=== PATIENT | male | born 1990 | race Caucasian/White ===

== ENCOUNTER 2017-07-04 10:31 | Emergency (ER) | payer BC ==
[~2017-07-04] VITALS: Ht 172.7 cm; Wt 72.6 kg
[~2017-07-04 10:31] MED LIST: AMOXICILLIN 50500 M1 PO; IBUPROFEN 600600 M1 PO; ZOFRAN ODT8 MG PO
[2017-07-04] MEDS ORDERED: DOXYCYCLINE 10100 M1 PO (10:38)
[2017-07-04 10:58] LABS: ABSOLUTE NEUTROPHILS 4.7 thou/uL (1.4-8.2); BASOPHILS 0.9 % (0.0-2.0); EOSINOPHILS 2.9 % (0.0-3.0); HEMATOCRIT 48.6 % (42.0-52.0); LYMPHOCYTES 22.8 % (24.0-44.0); MCH 30.4 pg (26.0-34.0); MCV 86.8 fL (80.0-100.0); MONOCYTES 9.2 % (1.0-8.0); PLATELET COUNT 323 thou/uL (150-400); POLYS 64.2 % (36.0-66.0); RDW 12.9 % (10.5-14.5); WBC 7.3 thou/uL (4.0-11.0)
[2017-07-04 10:59] LABS: MANUAL DIFF NO
[2017-07-04 11:08] LABS: CALCIUM 10.1 mg/dL (8.5-10.1); CREATININE 1.3 mg/dL (0.7-1.3); POTASSIUM 3.5 mmol/L (3.5-5.1)
[2017-07-04 11:54] VITALS: BP 109/67
== END 2017-07-04 12:07 | disposition home or self-care (01) ==
LOC: ER 10:31
PROVIDERS: Physician Assistant
DX: J30.9 Allergic rhinitis, unspecified (principal); F41.9 Anxiety disorder, unspecified; J34.89 Other specified disorders of nose and nasal sinuses; F32.9 Major depressive disorder, single episode, unspecified; Z91.5 Personal history of self-harm; Z88.8 Allergy status to other drugs, medicaments and biological substances

== ENCOUNTER 2017-11-20 08:58 | Emergency (ER) | payer OTHER ==
[~2017-11-20] VITALS: Ht 177.8 cm; Wt 77.1 kg
--- NOTE | ~2017-11-20 | EKG ---
[address] [address] ELECTROCARDIOGRAM REPORT Name: DEBI DE LA CRUZ Room #: DEP Ashli#: [id number] Admission: 11/20/17 Attend Phys: Discharge: 11/20/17 Date of : 88 Report #: [id number] THIS REPORT FOR: //name// [facility] ED Test Date: 2017-11-20 Test Time: 09:02:44 Pat Name: DEBI DE LA CRUZ Department: Room: Gender: Business Change Manager: : 1990 Requested By: Zoe Alcaraz Order Number: [id number] MD: Edmond Salgado Measurements Intervals [place] Rate: 71 P: 36 SD: 167 QRS: 8 QRSD: 84 T: 44 QT: 392 QTc: 426 Interpretive Statements Sinus rhythm No previous ECG available for comparison Electronically Signed On 11-20-2017 15:42:33 GLOBAL LOGISTICS MANAGER by Edmond Salgado [email or web address] <ELECTRONICALLY SIGNED> By: Edmond Salgado MD 11/20/17 1542 0902 1 Edmond Salgado MD /KAREN
[~2017-11-20 08:58] MED LIST changes: +DOXYCYCLINE 10100 M1 PO; +ZOLOFT25 MG PO
[2017-11-20 09:25] LABS: HEMATOCRIT 44.9 % (42.0-52.0); HEMOGLOBIN 15.4 gm/dL (14.0-18.0); MCH 29.4 pg (26.0-34.0); MCHC 34.2 g/dL (28.0-37.0); MCV 85.8 fL (80.0-100.0); RBC 5.24 mil/uL (4.50-6.00); RDW 12.2 % (10.5-14.5); WBC 6.7 thou/uL (4.0-11.0)
[2017-11-20 09:41] LABS: ANION GAP 11 mmol/L (7-16); BUN 12 mg/dL (7-18); CALCIUM 9.5 mg/dL (8.5-10.1); CHLORIDE 104 mmol/L (98-107); CO2 27 mmol/L (21-32); GLUCOSE 97 mg/dL (74-106); POTASSIUM 3.6 mmol/L (3.5-5.1); SODIUM 142 mmol/L (136-145); TROPONIN-I < 0.04 ng/mL (<0.06)
[2017-11-20] MEDS ORDERED: PEPCID20 MG PO (09:58)
[2017-11-20] MEDS ORDERED: CARAFATE 1 GM TA1 G1 PO (09:58)
[2017-11-20] MEDS ORDERED: ATIVAN0.5 MG PO (09:58)
== END 2017-11-20 10:40 | disposition home or self-care (01) ==
LOC: ER 08:58
PROVIDERS: Physician Assistant
DX: R07.89 Other chest pain (principal); K29.70 Gastritis, unspecified, without bleeding; F41.9 Anxiety disorder, unspecified; F32.9 Major depressive disorder, single episode, unspecified; Z88.1 Allergy status to other antibiotic agents; Z88.8 Allergy status to other drugs, medicaments and biological substances

== ENCOUNTER → 2018-01-09 | Outpatient (CLI) | payer OTHER ==
[~2018-01-09] MED LIST changes: +ATIVAN0.5 MG PO; +CARAFATE 1 GM TA1 G1 PO; +PEPCID20 MG PO
== END ==
LOC: RAD 10:27 → CAT 12:23 → RAD 12:23
DX: R10.11 Right upper quadrant pain (principal); R19.7 Diarrhea, unspecified

== ENCOUNTER 2018-07-28 20:58 | Emergency (ER) | payer OTHER ==
[~2018-07-28] VITALS: Ht 175.3 cm; Wt 72.6 kg
[2018-07-28 21:22] LABS: HEMATOCRIT 45.4 % (42.0-52.0); HEMOGLOBIN 15.5 gm/dL (14.0-18.0); MCH 29.5 pg (26.0-34.0); MCHC 34.1 g/dL (28.0-37.0); MCV 86.6 fL (80.0-100.0); RBC 5.25 mil/uL (4.50-6.00); RDW 12.8 % (10.5-14.5); WBC 8.8 thou/uL (4.0-11.0)
[2018-07-28 21:31] LABS: CALCIUM 9.1 mg/dL (8.5-10.1); CREATININE 0.9 mg/dL (0.7-1.3); POTASSIUM 3.1 mmol/L (3.5-5.1)
[2018-07-28 23:20] VITALS: BP 109/68
== END 2018-07-28 23:41 | disposition home or self-care (01) ==
LOC: ER 20:58
PROVIDERS: Emergency Medicine
DX: S06.0X0A Concussion without loss of consciousness, initial encounter (principal); S00.83XA Contusion of other part of head, initial encounter; Z88.8 Allergy status to other drugs, medicaments and biological substances; K58.9 Irritable bowel syndrome, unspecified; F32.9 Major depressive disorder, single episode, unspecified; F41.9 Anxiety disorder, unspecified; X58.XXXA Exposure to other specified factors, initial encounter; Y92.009 Unspecified place in unspecified non-institutional (private) residence as the place of occurrence of the external cause; Y93.89 Activity, other specified; Y99.8 Other external cause status

== ENCOUNTER 2018-12-03 17:22 | Emergency (ER) | payer BC ==
[~2018-12-03] VITALS: Ht 177.8 cm; Wt 74.8 kg
[2018-12-03 18:20] LABS: ABSOLUTE NEUTROPHILS 8.9 thou/uL (1.4-8.2); BASOPHILS 0.9 % (0.0-2.0); EOSINOPHILS 0.5 % (0.0-3.0); HEMATOCRIT 46.5 % (42.0-52.0); HEMOGLOBIN 15.8 gm/dL (14.0-18.0); MCH 29.6 pg (26.0-34.0); MCV 87.1 fL (80.0-100.0); MONOCYTES 9.2 % (1.0-8.0); PLATELET COUNT 339 thou/uL (150-400); POLYS 75.4 % (36.0-66.0); RBC 5.34 mil/uL (4.50-6.00); RDW 12.6 % (10.5-14.5); WBC 11.8 thou/uL (4.0-11.0)
[2018-12-03 18:29] LABS: CALCIUM 9.3 mg/dL (8.5-10.1); CREATININE 0.9 mg/dL (0.7-1.3); POTASSIUM 3.3 mmol/L (3.5-5.1)
[2018-12-03 18:35] LABS: ALBUMIN 4.6 g/dL (3.4-5.0); TOTAL PROTEIN 8.2 g/dL (6.4-8.2)
[2018-12-03 19:08] VITALS: BP 130/73
--- NOTE | 2018-12-04 09:06 | EKG ---
[place] [address] [facility] [facility] [place] [address] ELECTROCARDIOGRAM REPORT Name: DEBI DE LA CRUZ [id number] ������������������ Admission: 12/03/18 ������������������ Attend Phys: Discharge: 12/03/18 ������������������ Date of : 88 Report #: [id number] ����������������������������������������������������������������� [id number] THIS REPORT FOR: //name// [facility] ED Test Date: 2018-12-03 Test Time: 18:17:18 Pat Name: DEBI DE LA CRUZ Department: Room: Gender: Machine Tool Operator: ASHLEIGHZak : 1990 Requested By: Gavin Diego Order Number: [id number] MD: Rogelio Wilcox Measurements Intervals [place] Rate: 59 P: 33 WV: 159 QRS: -11 QRSD: 84 T: 31 QT: 438 QTc: 434 Interpretive Statements Sinus bradycardia Otherwise no significant abnormality Compared to ECG 11/20/2017 09:02:44 No significant changes Electronically Signed On 12-04-2018 9:06:11 BOWL ATTENDANT by Rogeloi Wilcox [email or web address] ��������������������������������������������� <ELECTRONICALLY SIGNED> ���������������������������������������� By: Rogelio Wilcox MD, [facility] ��������������������������������������������� 12/04/18 0906 181 16 Rogelio Wilcox MD, FACC /EPI
== END 2018-12-03 19:09 | disposition home or self-care (01) ==
LOC: ER 17:22
PROVIDERS: Emergency Medicine
DX: R42 Dizziness and giddiness (principal); F32.9 Major depressive disorder, single episode, unspecified; F41.9 Anxiety disorder, unspecified; K58.9 Irritable bowel syndrome, unspecified; Z87.891 Personal history of nicotine dependence; Z88.8 Allergy status to other drugs, medicaments and biological substances